=== PATIENT | female | born 1975 | race American Indian/Alaskan Native ===

== ENCOUNTER 2018-01-30 19:19 | Observation (INO) | payer OTHER ==
[2018-01-30 20:55] LABS: BASO # 0.1 K/uL (0.0-0.2); BASO % 0.9 % (0.0-2.0); EOS # 0.4 K/uL (0.0-0.7); HEMOGLOBIN 6.6 g/dL (12.0-16.0); LYMPH % 25.6 % (20.0-40.0); MEAN CORPUSCULAR HEMOGLOBIN 16.9 pg (27.0-31.0); MEAN CORPUSCULAR HGB CONC 28.4 g/dL (33.0-37.0); MEAN PLATELET VOLUME 8.9 fl (7.2-11.7); MONO # 0.5 K/uL (0.0-0.8); MONO % 6.4 % (0.0-10.0); NEUT # 4.8 K/uL (1.8-7.0); NEUT % 62.1 % (50.0-75.0); RBC 3.93 Mil/uL (3.80-5.20); RED CELL DISTRIBUTION WIDTH 25.9 % (11.5-14.5); WHITE BLOOD COUNT 7.7 K/uL (4.8-10.8)
[2018-01-30 21:18] LABS: ALB/GLOB RATIO 1.3 (1.0-2.1); ALBUMIN 4.5 g/dL (3.5-5.0); ALT/SGPT 21 U/L (9-52); AST/SGOT 34 U/L (14-36); BLOOD UREA NITROGEN 13 mg/dl (7-17); GFR NON-AFRICAN AMERICAN > 60
[2018-01-30 21:29] LABS: B-TYPE NATRIURETIC PEPTIDE 444 pg/ml (0-450)
[2018-01-30 21:41] LABS: MEAN CELL VOLUME 59.4 fl (81.0-99.0)
[2018-01-30 22:04] LABS: BARBITURATES, UR NEGATIVE (NEGATIVE); BENZODIAZEPINES, UR NEGATIVE (NEGATIVE); OPIATES, UR NEGATIVE (NEGATIVE); PHENCYCLIDINE, UR POSITIVE (NEGATIVE); SQUAMOUS EPITHIAL 1 /hpf (0-5); URINE BACTERIA RARE (<OCC); URINE BILIRUBIN NEGATIVE (NEGATIVE); URINE CLARITY CLEAR (Clear); URINE COLOR YELLOW (YELLOW); URINE GLUCOSE (UA) NEG (Normal); URINE LEUKOCYTE ESTERASE NEG Leu/uL (Negative); URINE PROTEIN NEGATIVE (NEGATIVE)
[2018-01-30 22:06] LABS: URINE BLOOD SMALL (NEGATIVE)
[2018-01-30 22:06] LABS: INR 1.2; PROTHROMBIN TIME 13.4 Seconds (9.8-13.1)
--- NOTE | 2018-01-30 22:38 | ED PDOC ---
HPI: General Adult Time Seen by Provider: 01/30/18 19:38 Chief Complaint (Nursing): Medical Clearance Chief Complaint (Provider): chest pain, SOB History Per: Patient History/Exam Limitations: no limitations Onset/Duration Of Symptoms: Hrs (1) Additional Complaint(s): 43 yo female with HTN, CHF, diabetes, anemia and asthma presents for evaluation of chest pain, central, non-radiating and SOB. Nothing makes it better or worse. Pt denies wheezing or cough. 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 Pt denies palpitations. Pt states she had blood transfusion 6 years ago for heavy vaginal bleeding. Pt denies abdominal pain or dark stools. Pt brought by [facility] in custody. Past Medical History Reviewed: Historical Data, Nursing Documentation, Vital Signs Vital Signs: Last Vital Signs Temp 98.8 F 01/30/18 19:22 Pulse 74 01/30/18 19:22 Resp 16 01/30/18 19:22 BP 143/93 H 01/30/18 19:22 Pulse Ox 99 01/30/18 22:38 - Medical History PMH: Anemia, CHF, Diabetes, HTN - Surgical History Surgical History: No Surg Hx - Family History Family History: States: No Known Family Hx - Living Arrangements Living Arrangements: Other - Social History Current smoker - smoking cessation education provided: No Drugs: Cannabis, Other - Allergies Allergies/Adverse Reactions: Allergies Allergy/AdvReac Type Severity Reaction Status Date / Time No Known Allergies Allergy Verified 01/30/18 19:22 Review of Systems ROS Statement: Except As Marked, All Systems Reviewed And Found Negative Constitutional: Negative for: Fever, Chills Cardiovascular: Positive for: Chest Pain Respiratory: Positive for: Shortness of Breath. Negative for: Cough Gastrointestinal: Negative for: Nausea, Vomiting, Abdominal Pain Genitourinary Female: Negative for: Vaginal Bleeding, Pelvic Pain Physical Exam - Reviewed Nursing Documentation Reviewed: Yes Vital Signs Reviewed: Yes - Physical Exam Appears: Positive for: Well, Non-toxic, No Acute Distress Head Exam: Positive for: ATRAUMATIC, NORMAL INSPECTION, NORMOCEPHALIC Skin: Positive for: Normal Color, Warm, DRY Eye Exam: Positive for: Normal appearance ENT: Positive for: Normal ENT Inspection Neck: Positive for: Normal, Painless ROM Cardiovascular/Chest: Positive for: Regular Rate, Rhythm Respiratory: Positive for: Normal Breath Sounds. Negative for: Accessory Muscle Use, Respiratory Distress Gastrointestinal/Abdominal: Positive for: Normal Exam, Soft. Negative for: Tenderness Back: Positive for: Normal Inspection Rectal: Positive for: Deferred Extremity: Positive for: Normal ROM Neurologic/Psych: Positive for: Alert, Oriented - Laboratory Results Result Diagrams: 01/30/18 20:50 01/30/18 20:50 - ECG O2 Sat by Pulse Oximetry: 99 Medical Decision Making Medical Decision Making: CXR without acute cardiopulmonary disease Troponin (-) ProBNP WNL Labs normal. 22:[address] Kohler. Would like medicine job service consultant contacted for admission. 23:[address] Sanchez for admission. Additional labs ordered as per Dr. Sanchez. Disposition - Clinical Impression Clinical Impression: Chest pain, Anemia - Patient ED Disposition Is Patient to be Admitted: Yes - Disposition Disposition Time: 23:12 Condition: STABLE - Pt Status Changed To: Hospital Disposition Of: Observation - Admit Certification Admit to Inpatient:: Telemetry - POA Present On Arrival: None
[2018-01-31 02:49] LABS: FERRITIN 5.8 ng/Ml (6.24-137.0)
[2018-01-31] MEDS: Insulin Lispro (humaLOG) 100 Units/ml Inj SC SCH ×4 (06:52→23:00)
--- NOTE | 2018-01-31 08:30 | RAD ---
Date of service: 01/30/2018 HISTORY: Chest pressure COMPARISON: No prior. FINDINGS: LUNGS: The lungs are well inflated and clear. PLEURA: No significant pleural effusion identified, no pneumothorax apparent. CARDIOVASCULAR: There is mild cardiomegaly. OSSEOUS STRUCTURES: No significant abnormalities. VISUALIZED UPPER ABDOMEN: Normal. OTHER FINDINGS: None. IMPRESSION: No active pulmonary disease.
--- NOTE | 2018-01-31 09:32 | CARD ---
APPROVED REPORT Date of service: 01/30/2018 <Conclusion> Normal sinus rhythm Possible Left atrial enlargement Left axis deviation Left bundle branch block Abnormal ECG
[2018-01-31 12:51] LABS: FOLATE 7.8 ng/mL
--- NOTE | 2018-01-31 13:19 | CP.PCM.HP ---
<PalaciosFranciso - Last Filed: 01/31/18 13:15> History of Present Illness - History of Present Illness History of Present Illness: 43 y/o female with a PMHx of HTN, CHF, DM, anemia and asthma presented to ED with chest pain. Pt was found to be anemic on bloodwork and admitted for management of anemia. -Today, pt was evaluated and examined with Dr Sanchez by bedside. Pt reported improvement of chest pain with NO SOB. Pt afebrile overnight with NO acute events overnight. --CXR without acute cardiopulmonary disease --Troponin (-) --ProBNP WNL Present on Admission - Present on Admission Any Indicators Present on Admission: No Review of Systems - Constitutional Constitutional: absent: Anorexia, Chills, Fever - EENT Eyes: absent: Change in Vision Ears: absent: Tinnitus Nose/Mouth/Throat: absent: Nasal Congestion, Odynophagia, Tongue Swelling - Cardiovascular Cardiovascular: absent: Chest Pain, Claudication, Edema - Respiratory Respiratory: absent: Cough, Dyspnea - Gastrointestinal Gastrointestinal: absent: Abdominal Pain, Nausea, Temesmus, Vomiting - Genitourinary Genitourinary: absent: Difficulty Urinating, Dysuria, Urinary Frequency Past Patient History - Past Medical History & Family History Past Medical History?: Yes - Past Social History Smoking Status: Current Some Days Smoker - CARDIAC Hx Cardiac Disorders: Yes Hx Congestive Heart Failure: Yes Hx Hypertension: Yes - PULMONARY Hx Asthma: Yes - ENDOCRINE/METABOLIC Hx Endocrine Disorders: Yes Hx Diabetes Mellitus Type 2: Yes - HEMATOLOGICAL/ONCOLOGICAL Hx Blood Disorders: Yes Hx Blood Transfusions: Yes - MUSCULOSKELETAL/RHEUMATOLOGICAL Hx Falls: No - PSYCHIATRIC Hx Substance Use: Yes - ANESTHESIA Hx Anesthesia: No Hx Anesthesia Reactions: No Meds Allergies/Adverse Reactions: Allergies Allergy/AdvReac Type Severity Reaction Status Date / Time No Known Allergies Allergy Verified 01/30/18 19:22 Physical Exam - Constitutional Appears: No Acute Distress - Head Exam Head Exam: ATRAUMATIC, NORMAL INSPECTION - Eye Exam Eye Exam: absent: EOMI, Normal appearance - ENT Exam ENT Exam: Mucous Membranes Moist - Neck Exam Neck exam: Positive for: Full Rom. Negative for: Lymphadenopathy, Meningismus - Respiratory Exam Respiratory Exam: Clear to Auscultation Bilateral, NORMAL BREATHING PATTERN. absent: Rhonchi, Wheezes - Cardiovascular Exam Cardiovascular Exam: REGULAR RHYTHM, +S1, +S2 - GI/Abdominal Exam GI & Abdominal Exam: Normal Bowel Sounds, Soft. absent: Distended, Guarding, Hernia, Tenderness - Extremities Exam Extremities exam: Positive for: full ROM, normal inspection. Negative for: calf tenderness, pedal edema - Neurological Exam Neurological exam: Alert, Oriented x3 Results - Vital Signs Recent Vital Signs: Last Vital Signs Temp 98.6 F 01/31/18 12:15 Pulse 58 L 01/31/18 12:15 Resp 18 01/31/18 12:15 BP 148/88 01/31/18 12:15 Pulse Ox 100 01/31/18 12:15 - Labs Result Diagrams: 01/30/18 20:50 01/30/18 20:50 Labs: Laboratory Results - last 24 hr 01/30/18 01/30/18 01/30/18 20:50 20:50 21:37 WBC 7.7 RBC 3.93 Hgb 6.6 L Hct 23.3 L MCV 59.4 L MCH 16.9 L MCHC 28.4 L RDW 25.9 H Plt Count 268 MPV 8.9 Neut % (Auto) 62.1 Lymph % (Auto) 25.6 [place] % (Auto) 6.4 Eos % (Auto) 5.0 H Baso % (Auto) 0.9 Neut # (Auto) 4.8 Lymph # (Auto) 2.0 [place] # (Auto) 0.5 Eos # (Auto) 0.4 Baso # (Auto) 0.1 PT INR APTT Sodium 139 Potassium 4.5 Chloride 106 Carbon Dioxide 22 Anion Gap 16 BUN 13 Creatinine 0.6 L Est GFR ( Amer) > 60 Est GFR (Non-Af Amer) > 60 POC Glucose (mg/dL) Random Glucose 87 Calcium 9.0 Ferritin Total Bilirubin 0.2 AST 34 ALT 21 Alkaline Phosphatase 73 Troponin I 0.0160 NT-Pro-B Natriuret Pep 444 Total Protein 7.8 Albumin 4.5 Globulin 3.3 Albumin/Globulin Ratio 1.3 Vitamin B12 Folate Urine Color Urine Clarity Urine pH Ur Specific [place] Urine Protein Urine Glucose (UA) Urine Ketones Urine Blood Urine Nitrate Urine Bilirubin Urine Urobilinogen Ur Leukocyte Esterase Urine RBC (Auto) Urine Microscopic WBC Ur Squamous Epith Cells Urine Bacteria Urine Opiates Screen Negative Urine Methadone Screen Negative Ur Barbiturates Screen Negative Ur Phencyclidine Scrn Positive H Ur Amphetamines Screen Negative U Benzodiazepines Scrn Negative U Oth Cocaine Metabols Negative U Cannabinoids Screen Positive H Alcohol, Quantitative Blood Type Blood Type Confirm Antibody Screen Crossmatch BBK History Checked 01/30/18 01/30/18 01/30/18 21:37 21:40 21:53 WBC RBC Hgb Hct MCV MCH MCHC RDW Plt Count MPV Neut % (Auto) Lymph % (Auto) [place] % (Auto) Eos % (Auto) Baso % (Auto) Neut # (Auto) Lymph # (Auto) [place] # (Auto) Eos # (Auto) Baso # (Auto) PT INR APTT Sodium Potassium Chloride Carbon Dioxide Anion Gap BUN Creatinine Est GFR ( Amer) Est GFR (Non-Af Amer) POC Glucose (mg/dL) Random Glucose Calcium Ferritin Total Bilirubin AST ALT Alkaline Phosphatase Troponin I NT-Pro-B Natriuret Pep Total Protein Albumin Globulin Albumin/Globulin Ratio Vitamin B12 Folate Urine Color Yellow Urine Clarity Clear Urine pH 6.0 Ur Specific [place] 1.021 Urine Protein Negative Urine Glucose (UA) Neg Urine Ketones Negative Urine Blood Small Urine Nitrate Negative Urine Bilirubin Negative Urine Urobilinogen 2.0 H Ur Leukocyte Esterase Neg Urine RBC (Auto) 5 H Urine Microscopic WBC 1 Ur Squamous Epith Cells 1 Urine Bacteria Rare Urine Opiates Screen Urine Methadone Screen Ur Barbiturates Screen Ur Phencyclidine Scrn Ur Amphetamines Screen U Benzodiazepines Scrn U Oth Cocaine Metabols U Cannabinoids Screen Alcohol, Quantitative < 10 Blood Type O POSITIVE Blood Type Confirm Antibody Screen Negative Crossmatch See Detail BBK History Checked No verified bt 01/30/18 01/30/18 01/31/18 21:53 22:49 01:30 WBC RBC Hgb Hct MCV MCH MCHC RDW Plt Count MPV Neut % (Auto) Lymph % (Auto) [place] % (Auto) Eos % (Auto) Baso % (Auto) Neut # (Auto) Lymph # (Auto) [place] # (Auto) Eos # (Auto) Baso # (Auto) PT 13.4 H INR 1.2 APTT 34.0 Sodium Potassium Chloride Carbon Dioxide Anion Gap BUN Creatinine Est GFR ( Amer) Est GFR (Non-Af Amer) POC Glucose (mg/dL) Random Glucose Calcium Ferritin 5.8 L Total Bilirubin AST ALT Alkaline Phosphatase Troponin I NT-Pro-B Natriuret Pep Total Protein Albumin Globulin Albumin/Globulin Ratio Vitamin B12 455 Folate 7.8 Urine Color Urine Clarity Urine pH Ur Specific [place] Urine Protein Urine Glucose (UA) Urine Ketones Urine Blood Urine Nitrate Urine Bilirubin Urine Urobilinogen Ur Leukocyte Esterase Urine RBC (Auto) Urine Microscopic WBC Ur Squamous Epith Cells Urine Bacteria Urine Opiates Screen Urine Methadone Screen Ur Barbiturates Screen Ur Phencyclidine Scrn Ur Amphetamines Screen U Benzodiazepines Scrn U Oth Cocaine Metabols U Cannabinoids Screen Alcohol, Quantitative Blood Type Blood Type Confirm O POSITIVE Antibody Screen Crossmatch BBK History Checked 01/31/18 01/31/18 05:34 11:03 WBC RBC Hgb Hct MCV MCH MCHC RDW Plt Count MPV Neut % (Auto) Lymph % (Auto) [place] % (Auto) Eos % (Auto) Baso % (Auto) Neut # (Auto) Lymph # (Auto) [place] # (Auto) Eos # (Auto) Baso # (Auto) PT INR APTT Sodium Potassium Chloride Carbon Dioxide Anion Gap BUN Creatinine Est GFR ( Amer) Est GFR (Non-Af Amer) POC Glucose (mg/dL) 99 97 Random Glucose Calcium Ferritin Total Bilirubin AST ALT Alkaline Phosphatase Troponin I NT-Pro-B Natriuret Pep Total Protein Albumin Globulin Albumin/Globulin Ratio Vitamin B12 Folate Urine Color Urine Clarity Urine pH Ur Specific [place] Urine Protein Urine Glucose (UA) Urine Ketones Urine Blood Urine Nitrate Urine Bilirubin Urine Urobilinogen Ur Leukocyte Esterase Urine RBC (Auto) Urine Microscopic WBC Ur Squamous Epith Cells Urine Bacteria Urine Opiates Screen Urine Methadone Screen Ur Barbiturates Screen Ur Phencyclidine Scrn Ur Amphetamines Screen U Benzodiazepines Scrn U Oth Cocaine Metabols U Cannabinoids Screen Alcohol, Quantitative Blood Type Blood Type Confirm Antibody Screen Crossmatch BBK History Checked Assessment & Plan (1) Anemia Status: Acute (2) Chest pain Status: Resolved - Assessment and Plan (Free Text) Assessment: 43 y/o F with a PMHx of HTN, CHF, diabetes, anemia and asthma was admitted for evaluation and management of anemia and chest pain. --CXR without acute cardiopulmonary disease , Troponin (-) , ProBNP WNL. --Abnormal EKG: LBBB, see full report. --Cardiology consult ordered. --Home medications resumed --2 PRBC's being transfused. --CBC after blood transfusion. --Continue management as ordered. - Date & Time Date: 01/31/18 Time: 13:34 <Kenney Sanchez - Last Filed: 01/31/18 18:54> Results - Vital Signs Recent Vital Signs: Last Vital Signs Temp 98.1 F 01/31/18 15:38 Pulse 63 01/31/18 15:38 Resp 20 01/31/18 15:38 BP 151/88 H 01/31/18 15:38 Pulse Ox 99 01/31/18 15:38 - Labs Result Diagrams: 01/31/18 13:19 01/31/18 14:55 Labs: Laboratory Results - last 24 hr 01/30/18 01/30/18 01/30/18 20:50 20:50 21:37 WBC 7.7 RBC 3.93 Hgb 6.6 L Hct 23.3 L MCV 59.4 L MCH 16.9 L MCHC 28.4 L RDW 25.9 H Plt Count 268 MPV 8.9 Neut % (Auto) 62.1 Lymph % (Auto) 25.6 [place] % (Auto) 6.4 Eos % (Auto) 5.0 H Baso % (Auto) 0.9 Neut # (Auto) 4.8 Lymph # (Auto) 2.0 [place] # (Auto) 0.5 Eos # (Auto) 0.4 Baso # (Auto) 0.1 Retic Count PT INR APTT Sodium 139 Potassium 4.5 Chloride 106 Carbon Dioxide 22 Anion Gap 16 BUN 13 Creatinine 0.6 L Est GFR ( Amer) > 60 Est GFR (Non-Af Amer) > 60 POC Glucose (mg/dL) Random Glucose 87 Hemoglobin A1c Calcium 9.0 Ferritin Total Bilirubin 0.2 AST 34 ALT 21 Alkaline Phosphatase 73 Troponin I 0.0160 NT-Pro-B Natriuret Pep 444 Total Protein 7.8 Albumin 4.5 Globulin 3.3 Albumin/Globulin Ratio 1.3 Triglycerides Cholesterol LDL Cholesterol Direct HDL Cholesterol Vitamin B12 Folate Thyroxine (T4) Total T3 TSH 3rd Generation Urine Color Urine Clarity Urine pH Ur Specific [place] Urine Protein Urine Glucose (UA) Urine Ketones Urine Blood Urine Nitrate Urine Bilirubin Urine Urobilinogen Ur Leukocyte Esterase Urine RBC (Auto) Urine Microscopic WBC Ur Squamous Epith Cells Urine Bacteria Urine Opiates Screen Negative Urine Methadone Screen Negative Ur Barbiturates Screen Negative Ur Phencyclidine Scrn Positive H Ur Amphetamines Screen Negative U Benzodiazepines Scrn Negative U Oth Cocaine Metabols Negative U Cannabinoids Screen Positive H Alcohol, Quantitative Blood Type Blood Type Confirm Antibody Screen Crossmatch BBK History Checked 01/30/18 01/30/18 01/30/18 21:37 21:40 21:53 WBC RBC Hgb Hct MCV MCH MCHC RDW Plt Count MPV Neut % (Auto) Lymph % (Auto) [place] % (Auto) Eos % (Auto) Baso % (Auto) Neut # (Auto) Lymph # (Auto) [place] # (Auto) Eos # (Auto) Baso # (Auto) Retic Count PT INR APTT Sodium Potassium Chloride Carbon Dioxide Anion Gap BUN Creatinine Est GFR ( Amer) Est GFR (Non-Af Amer) POC Glucose (mg/dL) Random Glucose Hemoglobin A1c Calcium Ferritin Total Bilirubin AST ALT Alkaline Phosphatase Troponin I NT-Pro-B Natriuret Pep Total Protein Albumin Globulin Albumin/Globulin Ratio Triglycerides Cholesterol LDL Cholesterol Direct HDL Cholesterol Vitamin B12 Folate Thyroxine (T4) Total T3 TSH 3rd Generation Urine Color Yellow Urine Clarity Clear Urine pH 6.0 Ur Specific [place] 1.021 Urine Protein Negative Urine Glucose (UA) Neg Urine Ketones Negative Urine Blood Small Urine Nitrate Negative Urine Bilirubin Negative Urine Urobilinogen 2.0 H Ur Leukocyte Esterase Neg Urine RBC (Auto) 5 H Urine Microscopic WBC 1 Ur Squamous Epith Cells 1 Urine Bacteria Rare Urine Opiates Screen Urine Methadone Screen Ur Barbiturates Screen Ur Phencyclidine Scrn Ur Amphetamines Screen U Benzodiazepines Scrn U Oth Cocaine Metabols U Cannabinoids Screen Alcohol, Quantitative < 10 Blood Type O POSITIVE Blood Type Confirm Antibody Screen Negative Crossmatch See Detail BBK History Checked No verified bt 01/30/18 01/30/18 01/31/18 21:53 22:49 01:30 WBC RBC Hgb Hct MCV MCH MCHC RDW Plt Count MPV Neut % (Auto) Lymph % (Auto) [place] % (Auto) Eos % (Auto) Baso % (Auto) Neut # (Auto) Lymph # (Auto) [place] # (Auto) Eos # (Auto) Baso # (Auto) Retic Count PT 13.4 H INR 1.2 APTT 34.0 Sodium Potassium Chloride Carbon Dioxide Anion Gap BUN Creatinine Est GFR ( Amer) Est GFR (Non-Af Amer) POC Glucose (mg/dL) Random Glucose Hemoglobin A1c Calcium Ferritin 5.8 L Total Bilirubin AST ALT Alkaline Phosphatase Troponin I NT-Pro-B Natriuret Pep Total Protein Albumin Globulin Albumin/Globulin Ratio Triglycerides Cholesterol LDL Cholesterol Direct HDL Cholesterol Vitamin B12 455 Folate 7.8 Thyroxine (T4) Total T3 TSH 3rd Generation Urine Color Urine Clarity Urine pH Ur Specific [place] Urine Protein Urine Glucose (UA) Urine Ketones Urine Blood Urine Nitrate Urine Bilirubin Urine Urobilinogen Ur Leukocyte Esterase Urine RBC (Auto) Urine Microscopic WBC Ur Squamous Epith Cells Urine Bacteria Urine Opiates Screen Urine Methadone Screen Ur Barbiturates Screen Ur Phencyclidine Scrn Ur Amphetamines Screen U Benzodiazepines Scrn U Oth Cocaine Metabols U Cannabinoids Screen Alcohol, Quantitative Blood Type Blood Type Confirm O POSITIVE Antibody Screen Crossmatch BBK History Checked 01/31/18 01/31/18 01/31/18 05:34 11:03 13:19 WBC 6.5 RBC 4.63 Hgb 9.0 L D Hct 30.2 L MCV 65.2 L D MCH 19.4 L MCHC 29.8 L RDW 32.3 H Plt Count 213 MPV Neut % (Auto) Lymph % (Auto) [place] % (Auto) Eos % (Auto) Baso % (Auto) Neut # (Auto) Lymph # (Auto) [place] # (Auto) Eos # (Auto) Baso # (Auto) Retic Count PT INR APTT Sodium Potassium Chloride Carbon Dioxide Anion Gap BUN Creatinine Est GFR ( Amer) Est GFR (Non-Af Amer) POC Glucose (mg/dL) 99 97 Random Glucose Hemoglobin A1c Calcium Ferritin Total Bilirubin AST ALT Alkaline Phosphatase Troponin I NT-Pro-B Natriuret Pep Total Protein Albumin Globulin Albumin/Globulin Ratio Triglycerides Cholesterol LDL Cholesterol Direct HDL Cholesterol Vitamin B12 Folate Thyroxine (T4) Total T3 TSH 3rd Generation Urine Color Urine Clarity Urine pH Ur Specific [place] Urine Protein Urine Glucose (UA) Urine Ketones Urine Blood Urine Nitrate Urine Bilirubin Urine Urobilinogen Ur Leukocyte Esterase Urine RBC (Auto) Urine Microscopic WBC Ur Squamous Epith Cells Urine Bacteria Urine Opiates Screen Urine Methadone Screen Ur Barbiturates Screen Ur Phencyclidine Scrn Ur Amphetamines Screen U Benzodiazepines Scrn U Oth Cocaine Metabols U Cannabinoids Screen Alcohol, Quantitative Blood Type Blood Type Confirm Antibody Screen Crossmatch BBK History Checked 01/31/18 01/31/18 01/31/18 13:42 13:42 14:55 WBC RBC Hgb Hct MCV MCH MCHC RDW Plt Count MPV Neut % (Auto) Lymph % (Auto) [place] % (Auto) Eos % (Auto) Baso % (Auto) Neut # (Auto) Lymph # (Auto) [place] # (Auto) Eos # (Auto) Baso # (Auto) Retic Count 1.1 PT INR APTT Sodium 137 Potassium 4.3 Chloride 105 Carbon Dioxide 26 Anion Gap 10 BUN 13 Creatinine 0.6 L Est GFR ( Amer) > 60 Est GFR (Non-Af Amer) > 60 POC Glucose (mg/dL) Random Glucose 97 Hemoglobin A1c 5.6 Calcium 9.0 Ferritin Total Bilirubin 0.5 AST 23 ALT 25 Alkaline Phosphatase 64 Troponin I NT-Pro-B Natriuret Pep Total Protein 6.8 Albumin 3.8 Globulin 3.0 Albumin/Globulin Ratio 1.3 Triglycerides 56 Cholesterol 116 LDL Cholesterol Direct 41 HDL Cholesterol 51 Vitamin B12 Folate Thyroxine (T4) 4.37 L Total T3 0.764 L TSH 3rd Generation 1.28 Urine Color Urine Clarity Urine pH Ur Specific [place] Urine Protein Urine Glucose (UA) Urine Ketones Urine Blood Urine Nitrate Urine Bilirubin Urine Urobilinogen Ur Leukocyte Esterase Urine RBC (Auto) Urine Microscopic WBC Ur Squamous Epith Cells Urine Bacteria Urine Opiates Screen Urine Methadone Screen Ur Barbiturates Screen Ur Phencyclidine Scrn Ur Amphetamines Screen U Benzodiazepines Scrn U Oth Cocaine Metabols U Cannabinoids Screen Alcohol, Quantitative Blood Type Blood Type Confirm Antibody Screen Crossmatch BBK History Checked 01/31/18 16:56 WBC RBC Hgb Hct MCV MCH MCHC RDW Plt Count MPV Neut % (Auto) Lymph % (Auto) [place] % (Auto) Eos % (Auto) Baso % (Auto) Neut # (Auto) Lymph # (Auto) [place] # (Auto) Eos # (Auto) Baso # (Auto) Retic Count PT INR APTT Sodium Potassium Chloride Carbon Dioxide Anion Gap BUN Creatinine Est GFR ( Amer) Est GFR (Non-Af Amer) POC Glucose (mg/dL) 117 H Random Glucose Hemoglobin A1c Calcium Ferritin Total Bilirubin AST ALT Alkaline Phosphatase Troponin I NT-Pro-B Natriuret Pep Total Protein Albumin Globulin Albumin/Globulin Ratio Triglycerides Cholesterol LDL Cholesterol Direct HDL Cholesterol Vitamin B12 Folate Thyroxine (T4) Total T3 TSH 3rd Generation Urine Color Urine Clarity Urine pH Ur Specific [place] Urine Protein Urine Glucose (UA) Urine Ketones Urine Blood Urine Nitrate Urine Bilirubin Urine Urobilinogen Ur Leukocyte Esterase Urine RBC (Auto) Urine Microscopic WBC Ur Squamous Epith Cells Urine Bacteria Urine Opiates Screen Urine Methadone Screen Ur Barbiturates Screen Ur Phencyclidine Scrn Ur Amphetamines Screen U Benzodiazepines Scrn U Oth Cocaine Metabols U Cannabinoids Screen Alcohol, Quantitative Blood Type Blood Type Confirm Antibody Screen Crossmatch BBK History Checked Assessment & Plan - Assessment and Plan (Free Text) Assessment: Patient was personally seen and examined by me in rounds with residents. Available labs and diagnostic data reviewed. Case, Patient's condition and management plan discussed with residents in rounds. Agree with resident's progress note. Plan: As ordered.
[2018-01-31 13:22] LABS: MEAN CELL VOLUME 65.2 fl (81.0-99.0); MEAN CORPUSCULAR HEMOGLOBIN 19.4 pg (27.0-31.0); MEAN CORPUSCULAR HGB CONC 29.8 g/dL (33.0-37.0); RBC 4.63 Mil/uL (3.80-5.20); RED CELL DISTRIBUTION WIDTH 32.3 % (11.5-14.5); WHITE BLOOD COUNT 6.5 K/uL (4.8-10.8)
--- NOTE | 2018-01-31 14:31 | CP.PCM.CON ---
History of Present Illness - History of Present Illness History of Present Illness: 43 yo female with chest pain, central, non-radiating Has had these pains for months they come and go usually while at rest Pt is in Police custody Nothing makes it better or worse. Pt denies wheezing or cough. Pt states it began about 1 hour [employer]. Pt denies palpitations. Pt states she had blood transfusion 6 years ago for heavy vaginal bleeding. Pt denies abdominal pain or dark stools. Pt brought by [place] [employer] in custody. EKG: LBBB Troponin: neg Tox screen: PCP PMH: Hypertension NIDDM anemia asthma Past Patient History - Past Medical History & Family History Past Medical History?: Yes - Past Social History Smoking Status: Current Some Days Smoker - CARDIAC Hx Cardiac Disorders: Yes Hx Congestive Heart Failure: Yes Hx Hypertension: Yes - PULMONARY Hx Asthma: Yes - ENDOCRINE/METABOLIC Hx Endocrine Disorders: Yes Hx Diabetes Mellitus Type 2: Yes - HEMATOLOGICAL/ONCOLOGICAL Hx Blood Disorders: Yes Hx Blood Transfusions: Yes - MUSCULOSKELETAL/RHEUMATOLOGICAL Hx Falls: No - PSYCHIATRIC Hx Substance Use: Yes - ANESTHESIA Hx Anesthesia: No Hx Anesthesia Reactions: No Meds Allergies/Adverse Reactions: Allergies Allergy/AdvReac Type Severity Reaction Status Date / Time No Known Allergies Allergy Verified 01/30/18 19:22 - Medications Medications: Current Medications Insulin Human Lispro (Humalog) 0 units SC ACHS COLLIN PRN Reason: Protocol Last Admin: 01/31/18 12:11 Dose: Not Given Physical Exam - Constitutional Appears: Well - Head Exam Head Exam: NORMAL INSPECTION - Eye Exam Eye Exam: Normal appearance - ENT Exam ENT Exam: Normal Exam - Neck Exam Neck exam: Positive for: Normal Inspection - Respiratory Exam Respiratory Exam: NORMAL BREATHING PATTERN - Cardiovascular Exam Cardiovascular Exam: REGULAR RHYTHM Results - Vital Signs Recent Vital Signs: Last Vital Signs Temp 98.6 F 01/31/18 12:15 Pulse 58 L 01/31/18 12:15 Resp 18 01/31/18 12:15 BP 148/88 01/31/18 12:15 Pulse Ox 100 01/31/18 12:15 - Labs Result Diagrams: 01/31/18 13:19 01/31/18 14:55 Labs: Laboratory Results - last 24 hr 01/30/18 01/30/18 01/30/18 20:50 20:50 21:37 WBC 7.7 RBC 3.93 Hgb 6.6 L Hct 23.3 L MCV 59.4 L MCH 16.9 L MCHC 28.4 L RDW 25.9 H Plt Count 268 MPV 8.9 Neut % (Auto) 62.1 Lymph % (Auto) 25.6 [place] % (Auto) 6.4 Eos % (Auto) 5.0 H Baso % (Auto) 0.9 Neut # (Auto) 4.8 Lymph # (Auto) 2.0 [place] # (Auto) 0.5 Eos # (Auto) 0.4 Baso # (Auto) 0.1 Retic Count PT INR APTT Sodium 139 Potassium 4.5 Chloride 106 Carbon Dioxide 22 Anion Gap 16 BUN 13 Creatinine 0.6 L Est GFR ( Amer) > 60 Est GFR (Non-Af Amer) > 60 POC Glucose (mg/dL) Random Glucose 87 Calcium 9.0 Ferritin Total Bilirubin 0.2 AST 34 ALT 21 Alkaline Phosphatase 73 Troponin I 0.0160 NT-Pro-B Natriuret Pep 444 Total Protein 7.8 Albumin 4.5 Globulin 3.3 Albumin/Globulin Ratio 1.3 Vitamin B12 Folate Urine Color Urine Clarity Urine pH Ur Specific [place] Urine Protein Urine Glucose (UA) Urine Ketones Urine Blood Urine Nitrate Urine Bilirubin Urine Urobilinogen Ur Leukocyte Esterase Urine RBC (Auto) Urine Microscopic WBC Ur Squamous Epith Cells Urine Bacteria Urine Opiates Screen Negative Urine Methadone Screen Negative Ur Barbiturates Screen Negative Ur Phencyclidine Scrn Positive H Ur Amphetamines Screen Negative U Benzodiazepines Scrn Negative U Oth Cocaine Metabols Negative U Cannabinoids Screen Positive H Alcohol, Quantitative Blood Type Blood Type Confirm Antibody Screen Crossmatch BBK History Checked 01/30/18 01/30/18 01/30/18 21:37 21:40 21:53 WBC RBC Hgb Hct MCV MCH MCHC RDW Plt Count MPV Neut % (Auto) Lymph % (Auto) [place] % (Auto) Eos % (Auto) Baso % (Auto) Neut # (Auto) Lymph # (Auto) [place] # (Auto) Eos # (Auto) Baso # (Auto) Retic Count PT INR APTT Sodium Potassium Chloride Carbon Dioxide Anion Gap BUN Creatinine Est GFR ( Amer) Est GFR (Non-Af Amer) POC Glucose (mg/dL) Random Glucose Calcium Ferritin Total Bilirubin AST ALT Alkaline Phosphatase Troponin I NT-Pro-B Natriuret Pep Total Protein Albumin Globulin Albumin/Globulin Ratio Vitamin B12 Folate Urine Color Yellow Urine Clarity Clear Urine pH 6.0 Ur Specific [place] 1.021 Urine Protein Negative Urine Glucose (UA) Neg Urine Ketones Negative Urine Blood Small Urine Nitrate Negative Urine Bilirubin Negative Urine Urobilinogen 2.0 H Ur Leukocyte Esterase Neg Urine RBC (Auto) 5 H Urine Microscopic WBC 1 Ur Squamous Epith Cells 1 Urine Bacteria Rare Urine Opiates Screen Urine Methadone Screen Ur Barbiturates Screen Ur Phencyclidine Scrn Ur Amphetamines Screen U Benzodiazepines Scrn U Oth Cocaine Metabols U Cannabinoids Screen Alcohol, Quantitative < 10 Blood Type O POSITIVE Blood Type Confirm Antibody Screen Negative Crossmatch See Detail BBK History Checked No verified bt 01/30/18 01/30/18 01/31/18 21:53 22:49 01:30 WBC RBC Hgb Hct MCV MCH MCHC RDW Plt Count MPV Neut % (Auto) Lymph % (Auto) [place] % (Auto) Eos % (Auto) Baso % (Auto) Neut # (Auto) Lymph # (Auto) [place] # (Auto) Eos # (Auto) Baso # (Auto) Retic Count PT 13.4 H INR 1.2 APTT 34.0 Sodium Potassium Chloride Carbon Dioxide Anion Gap BUN Creatinine Est GFR ( Amer) Est GFR (Non-Af Amer) POC Glucose (mg/dL) Random Glucose Calcium Ferritin 5.8 L Total Bilirubin AST ALT Alkaline Phosphatase Troponin I NT-Pro-B Natriuret Pep Total Protein Albumin Globulin Albumin/Globulin Ratio Vitamin B12 455 Folate 7.8 Urine Color Urine Clarity Urine pH Ur Specific [place] Urine Protein Urine Glucose (UA) Urine Ketones Urine Blood Urine Nitrate Urine Bilirubin Urine Urobilinogen Ur Leukocyte Esterase Urine RBC (Auto) Urine Microscopic WBC Ur Squamous Epith Cells Urine Bacteria Urine Opiates Screen Urine Methadone Screen Ur Barbiturates Screen Ur Phencyclidine Scrn Ur Amphetamines Screen U Benzodiazepines Scrn U Oth Cocaine Metabols U Cannabinoids Screen Alcohol, Quantitative Blood Type Blood Type Confirm O POSITIVE Antibody Screen Crossmatch BBK History Checked 01/31/18 01/31/18 01/31/18 05:34 11:03 13:19 WBC 6.5 RBC 4.63 Hgb 9.0 L D Hct 30.2 L MCV 65.2 L D MCH 19.4 L MCHC 29.8 L RDW 32.3 H Plt Count 213 MPV Neut % (Auto) Lymph % (Auto) [place] % (Auto) Eos % (Auto) Baso % (Auto) Neut # (Auto) Lymph # (Auto) [place] # (Auto) Eos # (Auto) Baso # (Auto) Retic Count PT INR APTT Sodium Potassium Chloride Carbon Dioxide Anion Gap BUN Creatinine Est GFR ( Amer) Est GFR (Non-Af Amer) POC Glucose (mg/dL) 99 97 Random Glucose Calcium Ferritin Total Bilirubin AST ALT Alkaline Phosphatase Troponin I NT-Pro-B Natriuret Pep Total Protein Albumin Globulin Albumin/Globulin Ratio Vitamin B12 Folate Urine Color Urine Clarity Urine pH Ur Specific [place] Urine Protein Urine Glucose (UA) Urine Ketones Urine Blood Urine Nitrate Urine Bilirubin Urine Urobilinogen Ur Leukocyte Esterase Urine RBC (Auto) Urine Microscopic WBC Ur Squamous Epith Cells Urine Bacteria Urine Opiates Screen Urine Methadone Screen Ur Barbiturates Screen Ur Phencyclidine Scrn Ur Amphetamines Screen U Benzodiazepines Scrn U Oth Cocaine Metabols U Cannabinoids Screen Alcohol, Quantitative Blood Type Blood Type Confirm Antibody Screen Crossmatch BBK History Checked 01/31/18 13:42 WBC RBC Hgb Hct MCV MCH MCHC RDW Plt Count MPV Neut % (Auto) Lymph % (Auto) [place] % (Auto) Eos % (Auto) Baso % (Auto) Neut # (Auto) Lymph # (Auto) [place] # (Auto) Eos # (Auto) Baso # (Auto) Retic Count 1.1 PT INR APTT Sodium Potassium Chloride Carbon Dioxide Anion Gap BUN Creatinine Est GFR ( Amer) Est GFR (Non-Af Amer) POC Glucose (mg/dL) Random Glucose Calcium Ferritin Total Bilirubin AST ALT Alkaline Phosphatase Troponin I NT-Pro-B Natriuret Pep Total Protein Albumin Globulin Albumin/Globulin Ratio Vitamin B12 Folate Urine Color Urine Clarity Urine pH Ur Specific [place] Urine Protein Urine Glucose (UA) Urine Ketones Urine Blood Urine Nitrate Urine Bilirubin Urine Urobilinogen Ur Leukocyte Esterase Urine RBC (Auto) Urine Microscopic WBC Ur Squamous Epith Cells Urine Bacteria Urine Opiates Screen Urine Methadone Screen Ur Barbiturates Screen Ur Phencyclidine Scrn Ur Amphetamines Screen U Benzodiazepines Scrn U Oth Cocaine Metabols U Cannabinoids Screen Alcohol, Quantitative Blood Type Blood Type Confirm Antibody Screen Crossmatch BBK History Checked Assessment & Plan (1) Anemia Status: Acute (2) Chest pain Assessment and Plan: The chest pains are non cardiac in nature pt may be discharged Status: Resolved
[2018-01-31 15:22] LABS: ALB/GLOB RATIO 1.3 (1.0-2.1); ALBUMIN 3.8 g/dL (3.5-5.0); ALT/SGPT 25 U/L (9-52); AST/SGOT 23 U/L (14-36); BLOOD UREA NITROGEN 13 mg/dl (7-17); GFR NON-AFRICAN AMERICAN > 60; HDL CHOLESTEROL 51 MG/DL (30-70)
[2018-01-31 15:25] LABS: LDL CHOLESTEROL 41 mg/dL (0-129)
[2018-01-31 15:31] LABS: T4 4.37 ug/dl (5.5-11.0)
[2018-01-31 15:45] LABS: T3 0.764 nmol/L (1.49-2.60)
--- NOTE | 2018-01-31 18:45 | CARD ---
APPROVED REPORT Date of service: 01/31/2018 EXAM: Two-dimensional and M-mode echocardiogram with Doppler and color Doppler. Other Information Quality : GoodRhythm : NSR INDICATION Chest Pain 2D DIMENSIONS IVSd1.50 (0.7-1.1cm)LVDd5.30 (3.9-5.9cm) LVOT Diameter2.18 (1.8-2.4cm)PWd1.40 (0.7-1.1cm) IVSs1.79 (0.8-1.2cm)LVDs3.86 (2.5-4.0cm) FS (%) 23.2 %PWs1.63 (0.8-1.2cm) M-Mode DIMENSIONS Left Atrium (MM)4.21 (2.5-4.0cm)Aortic Root2.65 (2.2-3.7cm) LVDd4.88 (4.0-5.6cm)Aortic Cusp Exc.2.12 (1.5-2.0cm) IVSs2.00 cmFS (%) 24 % LVDs3.71 (2.0-3.8cm)PWs1.85 cm Aortic Valve AoV Peak Rdunqqca747.7cm/sAoV VTI30.7cmAO Peak GR.15mmHg LVOT Peak Aovuwbal60.9cm/sLVOT VTI15.84cmAO Mean GR.8mmHg EARLE (VMAX)1.42md3GZ P 1/2 [id number] Mitral Valve MV E Xbulbvjt53.3cm/sMV DECEL [id number] A Rotstvsd86.8cm/s MV ZCB99bfO/A ratio0.9MVA (PHT)2.60cm2 TDI Lateral E' Peak V7.99cm/sMedial E' Peak V5.79cm/sE/Lateral E'9.3 E/Medial E'12.8 LEFT VENTRICLE The left ventricle is normal size. There is mild to moderate concentric left ventricular hypertrophy. Left ventricular systolic function is normal The Ejection Fraction is 55-60%. No regional wall motion abnormalities noted.. Transmitral Doppler flow pattern is Grade I-abnormal relaxation pattern. No left ventricle thrombus noted on this study. There is no ventricular septal defect visualized. There is no mass noted in the left ventricle. RIGHT VENTRICLE The right ventricle is normal size. There is normal right ventricular wall thickness. The right ventricular systolic function is normal. ATRIA The left atrium size is mildly dilated The right atrium size is normal. The interatrial septum is intact with no evidence for an atrial septal defect. AORTIC VALVE The aortic valve is normal in structure. Mild aortic regurgitation is present. There is no aortic valvular stenosis. MITRAL VALVE The mitral valve is normal in structure. There is no mitral valve stenosis. There is mild mitral valve regurgitation noted. TRICUSPID VALVE The tricuspid valve is normal in structure. There is mild tricuspid valve regurgitation noted. PASP not measured PULMONIC VALVE The pulmonary valve is normal in structure. There is no pulmonic valvular regurgitation. GREAT VESSELS The aortic root is normal in size. The ascending aorta is normal in size. The pulmonary artery is normal. The IVC is normal in size and collapses >50% with inspiration. PERICARDIAL EFFUSION There is no pericardial effusion. <Conclusion> Mild aortic insufficiency Mild mitral insufficiency Mild tricuspid insufficiency Dilated left atrium Mild to moderate LVH Normal LV systolic function with doppler hemodynamics consistent with abnormal relaxation The Ejection Fraction is 55-60%.
[2018-02-01] MEDS: Insulin Lispro (humaLOG) 100 Units/ml Inj SC SCH (09:25)
[2018-02-01 13:27] VITALS: RESP 20
--- NOTE | 2018-02-01 15:50 | CP.PCM.DIS ---
Provider - Provider Date of Admission: 01/30/18 23:19 Attending physician: Kenney Sanchez MD Consults: Cardiology: Dr Garcia Time Spent in preparation of Discharge (in minutes): 35 Diagnosis - Discharge Diagnosis (1) Anemia Status: Acute (2) Chest pain Status: Resolved Hospital Course - Lab Results Lab Results: Most Recent Lab Values WBC 6.5 K/uL (4.8-10.8) 01/31/18 13:19 RBC 4.63 Mil/uL (3.80-5.20) 01/31/18 13:19 Hgb 9.0 g/dL (12.0-16.0) L D 01/31/18 13:19 Hct 30.2 % (34.0-47.0) L 01/31/18 13:19 MCV 65.2 fl (81.0-99.0) L D 01/31/18 13:19 MCH 19.4 pg (27.0-31.0) L 01/31/18 13:19 MCHC 29.8 g/dL (33.0-37.0) L 01/31/18 13:19 RDW 32.3 % (11.5-14.5) H 01/31/18 13:19 Plt Count 213 K/uL (130-400) 01/31/18 13:19 MPV 8.9 fl (7.2-11.7) 01/30/18 20:50 Neut % (Auto) 62.1 % (50.0-75.0) 01/30/18 20:50 Lymph % (Auto) 25.6 % (20.0-40.0) 01/30/18 20:50 [place] % (Auto) 6.4 % (0.0-10.0) 01/30/18 20:50 Eos % (Auto) 5.0 % (0.0-4.0) H 01/30/18 20:50 Baso % (Auto) 0.9 % (0.0-2.0) 01/30/18 20:50 Neut # (Auto) 4.8 K/uL (1.8-7.0) 01/30/18 20:50 Lymph # (Auto) 2.0 K/uL (1.0-4.3) 01/30/18 20:50 [place] # (Auto) 0.5 K/uL (0.0-0.8) 01/30/18 20:50 Eos # (Auto) 0.4 K/uL (0.0-0.7) 01/30/18 20:50 Baso # (Auto) 0.1 K/uL (0.0-0.2) 01/30/18 20:50 Retic Count 1.1 % (0.5-1.5) 01/31/18 13:42 PT 13.4 Seconds (9.8-13.1) H 01/30/18 21:53 INR 1.2 01/30/18 21:53 APTT 34.0 Seconds (25.6-37.1) 01/30/18 21:53 Sodium 137 mmol/l (132-148) 01/31/18 14:55 Potassium 4.3 MMOL/L (3.6-5.0) 01/31/18 14:55 Chloride 105 mmol/L (98-107) 01/31/18 14:55 Carbon Dioxide 26 mmol/L (22-30) 01/31/18 14:55 Anion Gap 10 (10-20) 01/31/18 14:55 BUN 13 mg/dl (7-17) 01/31/18 14:55 Creatinine 0.6 mg/dl (0.7-1.2) L 01/31/18 14:55 Est GFR ( Amer) > 60 01/31/18 14:55 Est GFR (Non-Af Amer) > 60 01/31/18 14:55 POC Glucose (mg/dL) 99 mg/dL (65-110) 01/31/18 22:32 Random Glucose 97 mg/dL (65-105) 01/31/18 14:55 Hemoglobin A1c 5.6 % (4.2-6.5) 01/31/18 13:42 Calcium 9.0 mg/dL (8.4-10.2) 01/31/18 14:55 Ferritin 5.8 ng/Ml (6.24-137.0) L 01/31/18 01:30 Total Bilirubin 0.5 mg/dl (0.2-1.3) 01/31/18 14:55 AST 23 U/L (14-36) 01/31/18 14:55 ALT 25 U/L (9-52) 01/31/18 14:55 Alkaline Phosphatase 64 U/L (38-126) 01/31/18 14:55 Troponin I 0.0160 ng/mL (0.00-0.120) 01/30/18 20:50 NT-Pro-B Natriuret Pep 444 pg/ml (0-450) 01/30/18 20:50 Total Protein 6.8 G/DL (6.3-8.2) 01/31/18 14:55 Albumin 3.8 g/dL (3.5-5.0) 01/31/18 14:55 Globulin 3.0 gm/dL (2.2-3.9) 01/31/18 14:55 Albumin/Globulin Ratio 1.3 (1.0-2.1) 01/31/18 14:55 Triglycerides 56 mg/DL (0-149) 01/31/18 14:55 Cholesterol 116 mg/dL (0-199) 01/31/18 14:55 LDL Cholesterol Direct 41 mg/dL (0-129) 01/31/18 14:55 HDL Cholesterol 51 MG/DL (30-70) 01/31/18 14:55 Vitamin B12 455 pg/mL (239-931) 01/31/18 01:30 Folate 7.8 ng/mL 01/31/18 01:30 Thyroxine (T4) 4.37 ug/dl (5.5-11.0) L 01/31/18 14:55 Total T3 0.764 nmol/L (1.49-2.60) L 01/31/18 14:55 TSH 3rd Generation 1.28 mIU/ML (0.46-4.68) 01/31/18 14:55 Urine Color Yellow (YELLOW) 01/30/18 21:37 Urine Clarity Clear (Clear) 01/30/18 21:37 Urine pH 6.0 (5.0-8.0) 01/30/18 21:37 Ur Specific [place] 1.021 (1.003-1.030) 01/30/18 21:37 Urine Protein Negative mg/dL (NEGATIVE) 01/30/18 21:37 Urine Glucose (UA) Neg mg/dL (Normal) 01/30/18 21:37 Urine Ketones Negative mg/dL (NEGATIVE) 01/30/18 21:37 Urine Blood Small (NEGATIVE) 01/30/18 21:37 Urine Nitrate Negative (NEGATIVE) 01/30/18 21:37 Urine Bilirubin Negative (NEGATIVE) 01/30/18 21:37 Urine Urobilinogen 2.0 mg/dL (0.2-1.0) H 01/30/18 21:37 Ur Leukocyte Esterase Neg [place]/uL (Negative) 01/30/18 21:37 Urine RBC (Auto) 5 /hpf (0-3) H 01/30/18 21:37 Urine Microscopic WBC 1 /hpf (0-5) 01/30/18 21:37 Ur Squamous Epith Cells 1 /hpf (0-5) 01/30/18 21:37 Urine Bacteria Rare (<OCC) 01/30/18 21:37 Urine Opiates Screen Negative (NEGATIVE) 01/30/18 21:37 Urine Methadone Screen Negative (NEGATIVE) 01/30/18 21:37 Ur Barbiturates Screen Negative (NEGATIVE) 01/30/18 21:37 Ur Phencyclidine Scrn Positive (NEGATIVE) H 01/30/18 21:37 Ur Amphetamines Screen Negative (NEGATIVE) 01/30/18 21:37 U Benzodiazepines Scrn Negative (NEGATIVE) 01/30/18 21:37 U Oth Cocaine Metabols Negative (NEGATIVE) 01/30/18 21:37 U Cannabinoids Screen Positive (NEGATIVE) H 01/30/18 21:37 Alcohol, Quantitative < 10 mg/dl (0-10) 01/30/18 21:40 Blood Type O POSITIVE 01/30/18 21:53 Blood Type Confirm O POSITIVE 01/30/18 22:49 Antibody Screen Negative 01/30/18 21:53 Crossmatch See Detail 01/30/18 21:53 BBK History Checked No verified bt 01/30/18 21:53 - Hospital Course Hospital Course: 43 y/o F with a PMHx of HTN, CHF, diabetes, anemia and asthma was admitted for evaluation and management of anemia and chest pain. Pt received 2 PRBC's as blood transfusion. EKG showed LBBB. Echocardiogram was WNL. Cardiology, Dr Garcia, states chest pain is NOT of heart source. Pt reported remarkable improvement, tolerating Po, afebrile, stable, will be d/c home. Pt instructed to f/u with PMD within 1 week if possible. - Date & Time of H&P Date of H&P: 01/31/18 Time of H&P: 13:15 Discharge Exam - Head Exam Head Exam: NORMAL INSPECTION - Eye Exam Eye Exam: EOMI - ENT Exam ENT Exam: Mucous Membranes Moist - Neck Exam Neck exam: Full Rom - Respiratory Exam Respiratory Exam: Clear to PA & Lateral, UNREMARKABLE - Cardiovascular Exam Cardiovascular Exam: REGULAR RHYTHM, +S1, +S2 - GI/Abdominal Exam GI & Abdominal Exam: Normal Bowel Sounds, Soft. absent: Distended, Firm, Guarding, Tenderness - Extremities Exam Extremities exam: full ROM - Neurological Exam Neurological exam: Alert, Oriented x3 Discharge Plan - Discharge Medications Prescriptions: Ferrous Sulfate [Feosol] 325 mg PO BID #60 tab - Follow Up Plan Condition: STABLE Disposition: HOME/ ROUTINE Instructions: Anemia Caused by Low Iron, Adult (DC), Chest Pain (DC), General ( DC) Referrals: Kenney Sanchez MD [Staff Provider] -
[2018-02-01 15:56] VITALS: BP 124/68; PULSE 75; TEMP 98.7; O2SAT 96
== END 2018-02-01 20:30 ==
LOC: H.ER 19:19 → H.ERHOLD 23:19 → H.TEL 01-31 01:21
PROVIDERS: ADMIT Internal Medicine; ATTEND Internal Medicine
DX: D64.9 Anemia, unspecified (principal); E11.9 Type 2 diabetes mellitus without complications; F17.200 Nicotine dependence, unspecified, uncomplicated; I11.0 Hypertensive heart disease with heart failure; I50.9 Heart failure, unspecified; I44.7 Left bundle-branch block, unspecified; R07.89 Other chest pain; J45.909 Unspecified asthma, uncomplicated
CPT/HCPCS: 36415; 36430; 71045; 80053; 80061; 80320; 80324; 80345; 80346; 80349; 80353; 80358; 80361; 81003; 81025; 82607; 82728; 82746; 82948; 83036; 83880; 83992; 84436; 84443; 84480; 84484; 85025; 85027; 85044; 85610; 85730; 86850; 86900; 86920; 87086; 93005; 93306; 99281; G0378; P9051